=== PATIENT | female | born 2000 | race Two or more races ===

== ENCOUNTER 2021-05-31 19:20 | Emergency (ER) | payer SELFPAY ==
[~2021-05-31] VITALS: Ht 119.4 cm; Wt 30.3 kg
[2021-05-31 21:08] LABS: BILIRUBIN,URINE NEGATIVE (NEG); CLARITY,URINE CLEAR; COLOR,URINE YELLOW; NITRITE,URINE NEGATIVE (NEG); PROTEIN,URINE NEGATIVE (NEG-TRACE); UROBILINOGEN,URINE 0.2 mg/dL (0.2 mg/dL)
[2021-05-31 21:18] LABS: BACTERIA,URINE 0 /HPF (0-FEW); RBC,URINE 0 /HPF (0-2); WBC,URINE 0 /HPF (0-4)
[2021-05-31 21:35] LABS: BASO % 0 % (0-3); EOS # 0.1 x10^3/uL (0.0-0.7); EOS % 1 % (0-3); HEMATOCRIT 38.8 % (36.0-47.0); HEMOGLOBIN 12.6 g/dL (12.0-15.5); LYMPH % 13 % (24-48); MEAN CORPUSCULAR HEMOGLOBIN 30 pg (25-35); MEAN CORPUSCULAR HGB CONC 33 g/dL (31-37); MEAN CORPUSCULAR VOLUME 93 fL (79-100); MONO % 7 % (0-9); NEUT # 11.7 x10^3/uL (1.8-7.7); NEUT % 79 % (31-73); PLATELET COUNT 263 x10^3/uL (140-400); RED BLOOD COUNT 4.18 x10^6/uL (3.50-5.40); RED CELL DISTRIBUTION WIDTH 15.6 % (11.5-14.5); WHITE BLOOD COUNT 14.8 x10^3/uL (4.0-11.0)
[2021-05-31 21:51] LABS: CALCIUM 7.9 mg/dL (8.5-10.1); CREATININE 0.5 mg/dL (0.6-1.0); GFR 157.3; POTASSIUM 3.5 mmol/L (3.5-5.1)
[2021-05-31 21:55] LABS: ALBUMIN 3.9 g/dL (3.4-5.0); ALBUMIN/GLOBULIN RATIO 1.1 (1.0-1.7); TOTAL BILIRUBIN 0.4 mg/dL (0.2-1.0); TOTAL PROTEIN 7.4 g/dL (6.4-8.2)
--- NOTE | 2021-05-31 23:47 | PHYS DOC ---
Past Medical History Past Surgical History: No Surgical History Smoking Status: Never Smoker Alcohol Use: None General Adult EDM: Chief Complaint: VAGINAL PROBLEM HPI: HPI: Patient is a 20 year old female presenting to the ED today complaining of vaginal pain, she states the pain feels like cramping, symptoms began today. Patient denies anything specifically exacerbating or relieving her pain. Denies any nausea, vomiting, denies any chance she is , denies any concerns for STDs. Review of Systems: Review of Systems: Constitutional: Denies fever or chills. [] Eyes: Denies change in visual acuity. [] HENT: Denies nasal congestion or sore throat. [] Respiratory: Denies cough or shortness of breath. [] Cardiovascular: Denies chest pain or edema. [] GI: Reports vaginal pain. Denies abdominal pain, nausea, vomiting, bloody stools or diarrhea. [] : Denies dysuria. [] Musculoskeletal: Denies back pain or joint pain. [] Integument: Denies rash. [] Neurologic: Denies headache, focal weakness or sensory changes. [] Endocrine: Denies polyuria or polydipsia. [] Lymphatic: Denies swollen glands. [] Psychiatric: Denies depression or anxiety. [] Heart Score: C/O Chest Pain: N/A Risk Factors: Risk Factors: DM, Current or recent (<one month) smoker, HTN, HLP, family history of CAD, obesity. Risk Scores: Score 0 - 3: 2.5% MACE over next 6 weeks - Discharge Home Score 4 - 6: 20.3% MACE over next 6 weeks - Admit for Clinical Observation Score 7 - 10: 72.7% MACE over next 6 weeks - Early Invasive Strategies Allergies: Allergies: Allergies Coded Allergies Type Severity Reaction Last Updated Verified No Known Drug Allergies 05/31/21 No Physical Exam: PE: Constitutional: Well developed, well nourished, no acute distress, non-toxic appearance. [] HENT: Normocephalic, atraumatic, bilateral external ears normal, oropharynx moist, no oral exudates, nose normal. [] Eyes: PERRLA, EOMI, conjunctiva normal, no discharge. [] Neck: Normal range of motion, no tenderness, supple, no stridor. [] Cardiovascular:Heart rate regular rhythm, no murmur [] Lungs & Thorax: Bilateral breath sounds clear to auscultation [] Abdomen: Bowel sounds normal, soft, no tenderness, no masses, no pulsatile masses. [] Pelvic exam-external pelvic is normal, cervix is visualized, closed, no CMT, no adnexal tenderness. Skin: Warm, dry, no erythema, no rash. [] Back: No tenderness, no CVA tenderness. [] Extremities: No tenderness, no cyanosis, no clubbing, ROM intact, no edema. [] Neurologic: Alert and oriented X 3, normal motor function, normal sensory function, no focal deficits noted. [] Psychologic: Affect normal, judgement normal, mood normal. [] Current Patient Data: Labs: Laboratory Tests Test 05/31/21 20:20 05/31/21 20:57 05/31/21 21:27 Urine Collection Type Unknown Urine Color Yellow Urine Clarity Clear Urine pH 6.0 (<5.0-8.0) Urine Specific [place] 1.015 (1.000-1.030) Urine Protein Negative mg/dL (NEG-TRACE) Urine Glucose (UA) Negative mg/dL (NEG) Urine Ketones (Stick) Negative mg/dL (NEG) Urine Blood Negative (NEG) Urine Nitrite Negative (NEG) Urine Bilirubin Negative (NEG) Urine Urobilinogen Dipstick 0.2 mg/dL (0.2 mg/dL) Urine Leukocyte Esterase Negative (NEG) Urine RBC 0 /HPF (0-2) Urine WBC 0 /HPF (0-4) Urine Squamous Epithelial Cells Few /LPF Urine Bacteria 0 /HPF (0-FEW) POC Urine HCG, Qualitative Hcg negative (Negative) White Blood Count 14.8 x10^3/uL (4.0-11.0) H Red Blood Count 4.18 x10^6/uL (3.50-5.40) Hemoglobin 12.6 g/dL (12.0-15.5) Hematocrit 38.8 % (36.0-47.0) Mean Corpuscular Volume 93 fL (79-100) Mean Corpuscular Hemoglobin 30 pg (25-35) Mean Corpuscular Hemoglobin Concent 33 g/dL (31-37) Red Cell Distribution Width 15.6 % (11.5-14.5) H Platelet Count 263 x10^3/uL (140-400) Neutrophils (%) (Auto) 79 % (31-73) H Lymphocytes (%) (Auto) 13 % (24-48) L Monocytes (%) (Auto) 7 % (0-9) Eosinophils (%) (Auto) 1 % (0-3) Basophils (%) (Auto) 0 % (0-3) Neutrophils # (Auto) 11.7 x10^3/uL (1.8-7.7) H Lymphocytes # (Auto) 2.0 x10^3/uL (1.0-4.8) Monocytes # (Auto) 1.0 x10^3/uL (0.0-1.1) Eosinophils # (Auto) 0.1 x10^3/uL (0.0-0.7) Basophils # (Auto) 0.0 x10^3/uL (0.0-0.2) Sodium Level 140 mmol/L (136-145) Potassium Level 3.5 mmol/L (3.5-5.1) Chloride Level 105 mmol/L (98-107) Carbon Dioxide Level 25 mmol/L (21-32) Anion Gap 10 (6-14) Blood Urea Nitrogen 13 mg/dL (7-20) Creatinine 0.5 mg/dL (0.6-1.0) L Estimated GFR (Cockcroft-Gault) 157.3 BUN/Creatinine Ratio 26 (6-20) H Glucose Level 86 mg/dL (70-99) Calcium Level 7.9 mg/dL (8.5-10.1) L Total Bilirubin 0.4 mg/dL (0.2-1.0) Aspartate Amino Transferase (AST) 15 U/L (15-37) Alanine Aminotransferase (ALT) 15 U/L (14-59) Alkaline Phosphatase 86 U/L (46-116) Total Protein 7.4 g/dL (6.4-8.2) Albumin 3.9 g/dL (3.4-5.0) Albumin/Globulin Ratio 1.1 (1.0-1.7) Laboratory Tests 05/31/21 21:27 Laboratory Tests 05/31/21 21:27 Microbiology 05/31/21 Wet Prep - Final, Complete Vital Signs: Vital Signs Date Time Temp Pulse Resp B/P (MAP) Pulse Ox O2 Delivery O2 Flow Rate FiO2 05/31/21 22:02 67 18 100/67 (78) 100 Room Air 05/31/21 20:25 99.3 99.3 EKG: EKG: [] Radiology/Procedures: Radiology/Procedures: [] PATIENT: ADRIAN BECKETT EACCOUNT: [id number] : 2000 LOCATION: ER AGE: 20 SEX: F EXAM STATUS: REG ER ORD. PHYSICIAN: MIHAI BURNS APRN REASON: pelvic pain PROCEDURE: PELVIS COMPLETE US PELVIS COMPLETE: 05/31/2021 11:28 PM INDICATION: 20 years old Female. Pelvic pain COMPARISON: None. TECHNIQUE: Transabdominal and transvaginal sonographic evaluation of the pelvis was performed. Grayscale, color Doppler and spectral waveform analysis were ut ilized. FINDINGS: UTERUS: Size: 7.0 x 3.6 x 4.0 cm. Masses: None. Endometrium: 18 mm. No suspicious vascularity is identified. RIGHT OVARY: 2.1 x 2.0 x 1.0 cm. Ovary is normal in appearance. LEFT OVARY: 3.5 x 3.8 x 2.2 cm. Hypoechoic cyst within the left ovary measures 2.0 x 2.0 x 1.2 cm. Arterial and venous waveform are identified within the ovaries bilaterally at the time of imaging. FREE FLUID: None. URINARY BLADDER: Unremarkable. IMPRESSION: Perfusion is noted to the ovaries bilaterally at the time of imaging. Hypoechoic cyst in left ovary measures 2.0 x 2.0 x 1.2 cm. Differential considerations include hemorrhagic cyst or endometrioma. A 3 month follow-up ultrasound could be of benefit. Electronically signed by: Rabia Lei MD (06/01/2021 12:37 AM) [facility] DICTATED and SIGNED BY: RABIA LEI MD DATE: 06/01/21 [id number] 0 Course & Med Decision Making: Course & Med Decision Making Pertinent Labs and Imaging studies reviewed. (See chart for details) This a 20-year-old female presenting to the ED today with vaginal pain, symptoms began today Negative urine hCG, UA negative for infection, wet prep is negative. Pelvic ultrasound noted for hypoechoic cyst in left ovary measures 2.0 x 2.0 x 1.2 cm. Differential considerations include hemorrhagic cyst or endometrioma, radiologist recommended following up in 3 months I spoke to patient about results using role player line. Provided OB for follow-up. Shazia Disclaimer: Shazia Disclaimer: This electronic medical record was generated, in whole or in part, using a voice recognition dictation system. Departure Departure Impression: Primary Impression: Left ovarian cyst Disposition: HOME / SELF CARE / HOMELESS Condition: STABLE Referrals: NO PCP (PCP) IRIS KYLE MD follow up in 1-2 weeks Patient Instructions: Ovarian Cyst Additional Instructions: You have a left ovarian cyst, please follow-up with the provided UNIFORMER or your own UNIFORMER in the next 1 to 2 weeks. Take the prescribed pain medicine as needed for pain. Apply a heating pad to pelvic region. Scripts Naproxen (NAPROXEN) 500 Mg Tablet 1 TAB PO BID for pain, #14 TAB 0 Refills Prov: MIHAI BURNS APRN 06/01/21 MIHAI BURNS APRN May 31, 2021 23:47
--- NOTE | 2021-06-01 00:39 | RAD ---
US PELVIS COMPLETE: 05/31/2021 11:28 PM INDICATION: 20 years old Female. Pelvic pain COMPARISON: None. TECHNIQUE: Transabdominal and transvaginal sonographic evaluation of the pelvis was performed. Deborah galdino, color Doppler and spectral waveform analysis were utilized. FINDINGS: UTERUS: Size: 7.0 x 3.6 x 4.0 cm. Masses: None. Endometrium: 18 mm. No suspicious vascularity is identified. RIGHT OVARY: 2.1 x 2.0 x 1.0 cm. Ovary is normal in appearance. LEFT OVARY: 3.5 x 3.8 x 2.2 cm. Hypoechoic cyst within the left ovary measures 2.0 x 2.0 x 1.2 cm. Arterial and venous waveform are identified within the ovaries bilaterally at the time of imaging. FREE FLUID: None. URINARY BLADDER: Unremarkable. IMPRESSION: Perfusion is noted to the ovaries bilaterally at the time of imaging. Hypoechoic cyst in left ovary m easures 2.0 x 2.0 x 1.2 cm. Differential considerations include hemorrhagic cyst or endometrioma. A 3 month follow-up ultrasound could be of benefit. Electronically signed by: Christiana Martinez MD (06/01/2021 12:37 AM) [facility]
[2021-06-01] MEDS ORDERED: NAPR-514 PO (00:55)
[2021-06-01 01:30] VITALS: BP 100/71
[2021-06-01] MEDS ORDERED: NAPROXEN 500 MG TABLET PO ONE (01:30)
[2021-06-02 20:08] LABS: GC PROBE Negative (Negative)
== END 2021-06-01 01:53 | disposition home or self-care (01) ==
LOC: ER 19:20
DX: N83.202 Unspecified ovarian cyst, left side (principal)
CPT/HCPCS: 36415; 76856; 80053; 81001; 81025; 85025; 87491; 87591; 99284; Q0111